=== PATIENT | male | born 1955 | race Caucasian/White ===

== ENCOUNTER → 2018-10-13 14:08 | Outpatient (CLI) | payer MEDICAID | END | disposition home or self-care (01) | LOC: D.RT 14:00 | PROVIDERS: ATTEND Internal Medicine Pulmonary Disease | DX: J44.9 Chronic obstructive pulmonary disease, unspecified (principal) ==

== ENCOUNTER → 2020-01-16 09:49 | Outpatient (CLI) | payer MEDICAID | END | disposition home or self-care (01) | LOC: D.RAD 09:49 | PROVIDERS: ATTEND Internal Medicine Pulmonary Disease | DX: J44.9 Chronic obstructive pulmonary disease, unspecified (principal) ==

== ENCOUNTER 2020-01-21 11:22 | Inpatient (IN) | payer OTHER ==
[~2020-01-21] VITALS: Ht 175.3 cm; Wt 76.4 kg
[2020-01-21] MEDS ORDERED: LISINOPRIL2.5 MG (11:27)
[2020-01-21] MEDS ORDERED: LISINOPRIL2.5 MG PO (11:27)
[2020-01-21] MEDS ORDERED: BAYER CHEWABLE81 MG PO (11:27)
[2020-01-21] MEDS ORDERED: BETAPACE 80 MG80 MG PO ×2 (11:27→16:22)
[2020-01-21] MEDS ORDERED: PREDNISONE1 MG PO (11:28)
[2020-01-21] MEDS ORDERED: PROAIR HFA8.5 G1 INH (11:28)
[2020-01-21 12:12] VITALS: BP 142/93
--- NOTE | 2020-01-21 12:12 | NUR ---
PT PLACED ON BI-PAP. WARM BLANKET FOR COMFORT. WILL CONT. TO MONITOR.
[2020-01-21 12:35] LABS: HEMATOCRIT 53.5 % (42.0-54.0); HEMOGLOBIN 17.5 g/dL (13.5-17.5); LYMPHOCYTES 11.3 % (15-50); MCH 30.4 pg (26.0-34.0); MCHC 32.7 g/dL (31.0-37.0); MEAN PLATELET VOLUME 10.6 fL (7.4-10.4); NEUTROPHILS 83.9 % (40-80); PLATELET COUNT 201 10x3/uL (130-400); RBC 5.75 10x6/uL (4.20-6.10); WBC 14.3 10x3/uL (4.8-10.8)
[2020-01-21 12:37] LABS: APTT 22.8 SECONDS (22.8-39.4); CALC OSMOLALITY 280 mosm/kg (275-300); CALCIUM 8.9 mg/dL (8.5-10.1); CARBON DIOXIDE 28.2 mmol/L (21.0-32.0); CHLORIDE - SERUM 102 mmol/L (98-107); CREATININE - SERUM 1.1 mg/dL (0.6-1.3); GLUCOSE 110 mg/dL (74-106); INR 0.99 (0.85-1.17); POTASSIUM - SERUM 4.1 mmol/L (3.5-5.1); PROTIME 13.1 SECONDS (11.6-15.0); SODIUM 139 mmol/L (136-145); UREA NITROGEN 19 mg/dL (7-18); eGFR NON AFRICAN AMERICAN 72 mL/min (90-120)
[2020-01-21 12:52] LABS: ALBUMIN 3.3 g/dL (3.4-5.0); ALKALINE PHOSPHATASE 61 U/L (30-120); ALT (SGPT) 23 U/L (10-68); BILIRUBIN - TOTAL 0.55 mg/dL (0.2-1.3); CKMB 0.8 U/L (0.0-3.6); CREATINE KINASE 61 UL (21-232); MAGNESIUM - SERUM 1.8 mg/dL (1.8-2.4); PRO BNP 161 pg/mL (0-125); PROTEIN - SERUM 7.2 g/dL (6.4-8.2); TROPONIN-I < 0.017 ng/mL (0.000-0.060)
--- NOTE | 2020-01-21 14:50 | NUR ---
RECEIVED PT TO ROOM 2126, VIA STRETCHER. PT WAS ABLE TO TRANSFER FROM STRETCHER TO BED. PT VERY SOB AND ANXIOUS. PLACED PT ON BIPAP AND WILL GIVE PT SOME BENADRYL TO HELP HIM RELAX AND LEAVE BIPAP ON. ORIENTED PT TO ROOM AND CALL LIGHT. WILL ASSESS PT AND START PLAN OF CARE.
[2020-01-21 15:40] VITALS: BP 148/88; BMI 24.2
[2020-01-21 15:48] VITALS: BP 148/88
[2020-01-21] MEDS ORDERED: LISINOPRIL10 MG PO (16:22)
[2020-01-21] MEDS ORDERED: PREDNISONE10 MG PO (16:24)
[2020-01-21] MEDS ORDERED: PHENERGAN/CODEINE (16:27)
--- NOTE | 2020-01-21 18:03 | NUR ---
BIPAP PLACED BACK ON PT.
--- NOTE | 2020-01-21 18:23 | NUR ---
NOTIFIED NICOLE ANG APN OF ELEVATED LATIC ACID OF 3.6. NO NEW ORDERES.
[2020-01-21 20:00] VITALS: BP 139/75
[2020-01-21 23:48] LABS: BILIRUBIN NEGATIVE (NEGATIVE); GLUCOSE 250 mg/dL (NEGATIVE); KETONE NEGATIVE (NEGATIVE); NITRITE NEGATIVE (NEGATIVE); UROBILINOGEN NORMAL (NORMAL)
[2020-01-21 23:49] LABS: BACTERIA FEW /hpf (NEGATIVE); EPITHELIAL CELLS 0-5 /hpf (0-5); RED CELLS - URINE 0-5 /hpf (0-5); WHITE CELLS - URINE NSEEN /hpf (NEGATIVE)
[2020-01-22] VITALS: BP 127/76
--- NOTE | 2020-01-22 00:08 | NUR ---
SPUTUM AND URINE SPECIMENS COLLECTED AND TAKEN TO LAB.
[2020-01-22 04:00] VITALS: BP 116/70
[2020-01-22 06:55] LABS: HEMATOCRIT 48.4 % (42.0-54.0); HEMOGLOBIN 16.2 g/dL (13.5-17.5); MCH 30.9 pg (26.0-34.0); MCHC 33.5 g/dL (31.0-37.0); MCV 92.4 fL (80.0-100.0); MEAN PLATELET VOLUME 11.3 fL (7.4-10.4); PLATELET COUNT 203 10x3/uL (130-400); RBC 5.24 10x6/uL (4.20-6.10); RDW 13.2 % (11.5-14.5); WBC 28.3 10x3/uL (4.8-10.8)
[2020-01-22 07:14] LABS: ANION GAP 10.8 mmol/L (8-16); BILIRUBIN - TOTAL 0.47 mg/dL (0.2-1.3); CALCIUM 8.9 mg/dL (8.5-10.1); CARBON DIOXIDE 27.6 mmol/L (21.0-32.0); CREATININE - SERUM 1.2 mg/dL (0.6-1.3); PHOSPHOROUS 4.3 mg/dL (2.5-4.9); POTASSIUM - SERUM 4.4 mmol/L (3.5-5.1); PROTEIN - SERUM 7.2 g/dL (6.4-8.2)
[2020-01-22 07:16] LABS: MAGNESIUM - SERUM 2.3 mg/dL (1.8-2.4)
[2020-01-22 09:13] VITALS: BP 139/84
--- NOTE | 2020-01-22 09:35 | NUR ---
AM MEDS GIVEN AT THIS TIME. PT IN BED, EATING BREAFAST. PT A/O X4, RESP EVEN AND NONLABORED ON 3L. LT FA IV SL AND RT HAND SL. PT DENIES ANY NEEDS AT THIS TIME. CALL LIGHT IN REACH, NAD NOTED, WILL CONTINUE TO MONITOR.
[2020-01-22 12:58] LABS: LYMPHOCYTES 14 % (15-50); MONOCYTES 9 % (2-11); NEUTROPHILS 67 % (40-80); PLATELET ESTIMATE NORMAL
[2020-01-22 13:12] VITALS: BP 144/82
[2020-01-22 13:39] VITALS: Ht 175.3 cm; Wt 76.4 kg
[2020-01-22 16:54] VITALS: BP 125/72
[2020-01-22 20:00] VITALS: BP 137/77
[2020-01-23] VITALS: BP 153/99
--- NOTE | 2020-01-23 03:05 | NUR ---
I have reviewed this patient and I concur with the Shift Assessment completed by the Licensed Practical Nurse today this shift.
[2020-01-23 04:00] VITALS: BP 130/79
[2020-01-23 07:12] LABS: BASOPHILS 0.1 % (0-2); EOSINOPHILS 1.7 % (0-7); HEMATOCRIT 43.3 % (42.0-54.0); HEMOGLOBIN 14.4 g/dL (13.5-17.5); IMMATURE GRANULOCYTES 1.6 % (0-5); LYMPHOCYTES 9.2 % (15-50); MCH 30.5 pg (26.0-34.0); MCHC 33.3 g/dL (31.0-37.0); MCV 91.7 fL (80.0-100.0); MEAN PLATELET VOLUME 11.3 fL (7.4-10.4); MONOCYTES 6.2 % (2-11); NEUTROPHILS 81.2 % (40-80); PLATELET COUNT 225 10x3/uL (130-400); RBC 4.72 10x6/uL (4.20-6.10)
[2020-01-23 07:18] LABS: WBC 19.2 10x3/uL (4.8-10.8)
--- NOTE | 2020-01-23 07:20 | NUR ---
RECIEVE REPORT. ALERT AND ORIENTED X4. SITTING UP IN BED WATCHING TV. DENIES ANY NEEDS. CONTINUE PLAN OF CARE AND SAFETY PRECAUTIONS.
[2020-01-23 07:48] LABS: ALBUMIN 2.6 g/dL (3.4-5.0); ALKALINE PHOSPHATASE 58 U/L (30-120); ALT (SGPT) 18 U/L (10-68); BILIRUBIN - TOTAL 0.29 mg/dL (0.2-1.3); CALC OSMOLALITY 277 mosm/kg (275-300); CALCIUM 8.9 mg/dL (8.5-10.1); CARBON DIOXIDE 24.7 mmol/L (21.0-32.0); CHLORIDE - SERUM 102 mmol/L (98-107); GLUCOSE 152 mg/dL (74-106); MAGNESIUM - SERUM 2.1 mg/dL (1.8-2.4); PHOSPHOROUS 3.7 mg/dL (2.5-4.9); PROTEIN - SERUM 6.7 g/dL (6.4-8.2); SODIUM 136 mmol/L (136-145); UREA NITROGEN 22 mg/dL (7-18); eGFR NON AFRICAN AMERICAN 80 mL/min (90-120)
[2020-01-23 08:39] VITALS: BP 145/71
[2020-01-23 12:00] VITALS: BP 134/74
[2020-01-23 16:38] VITALS: BP 151/79
[2020-01-23 20:00] VITALS: BP 139/77
[2020-01-24] VITALS: BP 142/81
--- NOTE | 2020-01-24 01:09 | NUR ---
I have reviewed this patient and I concur with the Shift Assessment completed by the Licensed Practical Nurse today this shift.
--- NOTE | 2020-01-24 02:14 | NUR ---
RESTING WITH EYES CLOSED, RESPERATIONS EVEN, NO S/S DISTRESS NOTED.
[2020-01-24 04:00] VITALS: BP 142/86
[2020-01-24 07:10] LABS: BASOPHILS 0.1 % (0-2); EOSINOPHILS 0 % (0-7); HEMATOCRIT 43.8 % (42.0-54.0); HEMOGLOBIN 14.8 g/dL (13.5-17.5); IMMATURE GRANULOCYTES 0.9 % (0-5); MCHC 33.8 g/dL (31.0-37.0); MCV 91.6 fL (80.0-100.0); MEAN PLATELET VOLUME 10.9 fL (7.4-10.4); MONOCYTES 7.6 % (2-11); NEUTROPHILS 81.4 % (40-80); PLATELET COUNT 221 10x3/uL (130-400); RBC 4.78 10x6/uL (4.20-6.10); RDW 12.9 % (11.5-14.5); WBC 16.2 10x3/uL (4.8-10.8)
[2020-01-24 07:13] LABS: ALBUMIN 2.6 g/dL (3.4-5.0); ANION GAP 10.4 mmol/L (8-16); BILIRUBIN - TOTAL 0.39 mg/dL (0.2-1.3); CALCIUM 8.4 mg/dL (8.5-10.1); CARBON DIOXIDE 25.6 mmol/L (21.0-32.0); CREATININE - SERUM 1.1 mg/dL (0.6-1.3); PHOSPHOROUS 3.7 mg/dL (2.5-4.9); PROTEIN - SERUM 6.6 g/dL (6.4-8.2)
[2020-01-24 10:28] VITALS: BP 137/76
[2020-01-24 11:57] VITALS: BP 149/87
[2020-01-24 16:11] VITALS: BP 156/81
--- NOTE | 2020-01-24 17:53 | NUR ---
ALERT AND ORIENTED X4. UP AMBULATING IN RENNER WITHOUT OXYGEN. AMBULATES 1000FT O2 SAT 96% RA. NO SIGNS OF DISTRESS. DENIES SOB. DENIES ANY NEEDS. CONTINUE PLAN OF CARE AND SAFEY PRECAUTIONS. RECOVER TIME 1 MINUTE O2 SAT 98%.
[2020-01-24 20:00] VITALS: BP 16/94
[2020-01-25] VITALS: BP 156/85
--- NOTE | 2020-01-25 03:42 | NUR ---
I have reviewed this patient and I concur with the Shift Assessment completed by the Licensed Practical Nurse today this shift.
--- NOTE | 2020-01-25 03:43 | NUR ---
I have reviewed this patient and I concur with the Shift Assessment completed by the Licensed Practical Nurse today this shift.
[2020-01-25 04:00] VITALS: BP 177/88
[2020-01-25 07:14] LABS: IMMUNOGLOBULIN A 105 mg/dL (61-437); IMMUNOGLOBULIN G 1222 mg/dL (603-1613)
[2020-01-25 07:26] LABS: ALBUMIN 2.7 g/dL (3.4-5.0); ANION GAP 11.4 mmol/L (8-16); BILIRUBIN - TOTAL 0.39 mg/dL (0.2-1.3); CALCIUM 8.6 mg/dL (8.5-10.1); CARBON DIOXIDE 25.7 mmol/L (21.0-32.0); CREATININE - SERUM 1.1 mg/dL (0.6-1.3); MAGNESIUM - SERUM 2.2 mg/dL (1.8-2.4); PHOSPHOROUS 4.1 mg/dL (2.5-4.9); POTASSIUM - SERUM 4.1 mmol/L (3.5-5.1); PROTEIN - SERUM 6.7 g/dL (6.4-8.2)
[2020-01-25 07:28] LABS: BASOPHILS 0.1 % (0-2); EOSINOPHILS 1.6 % (0-7); HEMATOCRIT 45.1 % (42.0-54.0); HEMOGLOBIN 15.5 g/dL (13.5-17.5); IMMATURE GRANULOCYTES 2.7 % (0-5); LYMPHOCYTES 10.7 % (15-50); MCHC 34.4 g/dL (31.0-37.0); MCV 90.2 fL (80.0-100.0); MEAN PLATELET VOLUME 10.6 fL (7.4-10.4); MONOCYTES 7.8 % (2-11); NEUTROPHILS 77.1 % (40-80); PLATELET COUNT 247 10x3/uL (130-400); RDW 12.7 % (11.5-14.5); WBC 18.6 10x3/uL (4.8-10.8)
[2020-01-25 09:12] VITALS: BP 141/96
--- NOTE | 2020-01-25 14:14 | MORECARE ---
CASE MANAGEMENT DISCHARGE SUMMARY PATIENT: MARÍA ELENA CASTELLANOS UNIT: [id number] ADM DATE: 01/21/20 AGE: 64 : 57 SEX: M ROOM/BED: D.2127 AUTHOR: SHYAM HANLEY PHYSICIAN: REFERRING PHYSICIAN: NICKO KHAN MD DATE OF SERVICE: 01/25/20 Discharge Plan Patient Name: MARÍA ELENA CASTELLANOS [facility] [facility] 1955 Planned Disposition: Home or Self Care Anticipated Discharge Date: Discharge Date: Expected LOS: Initial Reviewer: [email or web address] Initial Review Date: 01/21/2020 Generated: 01/25/20 3:13 pm DCPIA - Discharge Planning Initial Assessment Updated by [email or web address]: Grace Perera on 01/25/20 2:12 pm * Is the patient Alert and Oriented? Yes * How many steps to enter\exit or inside your home? 01/30 * PCP Fredi Streeter * Pharmacy [facility] * Preadmission Environment Home Alone * ADLs Independent * Equipment None * List name and contact numbers for known caregivers / representatives who currently or will assist patient after discharge: Marily Ledbetter [phone] * Verbal permission to speak to the caregivers and representatives has been obtained from the patient. Yes * Community resources currently utilized None * Additional services required to return to the preadmission environment? No * Can the patient safely return to the preadmission environment? Yes * Has this patient been hospitalized within the prior 30 days at any hospital? No Patient Name: MARÍA ELENA CASTELLANOS Page [id number] at 1414 All edits/amendments must be made on the electronic document DICTATION DATE: 01/25/20 1414 CIGARETTE MACHINE OPERATOR: LEONARDA 01/25/20 1414 RPT#: [id number] DC DATE: STATUS: ADM IN [facility] [address] [place] [address] END OF REPORT
--- NOTE | 2020-01-25 14:26 | MORECARE ---
CASE MANAGEMENT DISCHARGE SUMMARY PATIENT: MARÍA ELENA CASTELLANOS UNIT: [id number] ADM DATE: 01/21/20 AGE: 64 : 57 SEX: M ROOM/BED: D.8739 AUTHOR: TALON,DOC PHYSICIAN: REFERRING PHYSICIAN: NICKO KHAN MD DATE OF SERVICE: 01/25/20 Discharge Plan Patient Name: MARÍA ELENA CASTELLANOS Facility: [facility]:[place] : 1955 Planned Disposition: Home or Self Care Anticipated Discharge Date: Discharge Date: Expected LOS: Initial Reviewer: [email or web address] Initial Review Date: 01/21/2020 Generated: 01/25/20 3:26 pm Comments DCP- Discharge Planning Updated by [email or web address]: Grace Perera on 01/25/20 1:[address] Patient Name: MARÍA ELENA CASTELLANOS Admission Status: ER Accout number: [id number] Admission Date: 01-21-2020 : 1955 Admission Diagnosis:LOBAR PNEUMONIA, UNSPECIFIED ORGANISM Attending: WYATT Current LOS: 4 Anticipated DC Date: Planned Disposition: Home or Self Care Primary Insurance: [employer] Discharge Planning Comments: CM met with patient to complete initial dc planning assessment. CM educated patient on the CM role and verbal consent given by patient to complete assessment. CM verified patient's address, phone number, and emergency contact phone numbers. Patient lives at home with his and assist in caring for her. At discharge patient plans to return home and feels this is a safe discharge. CM discussed availability of home health, rehab services, and medical equipment. Patient denied any known discharge needs at this time. A walk test was performed to assess the need for home and portable oxygen. The patient oxygen saturation was 96% while walking. The patient states he is able to drive himself home. DC IMM delivered, explained, signed by the patient, and placed in chart. Signed form also left with the patient. CM will continue to follow and will assist as needed with dc plans/needs. Setter Induction Heating Equipment: Grace Perera DCPIA - Discharge Planning Initial Assessment Updated by [email or web address]: Grace Perera on 01/25/20 2:12 pm * Is the patient Alert and Oriented? Yes * How many steps to enter\exit or inside your home? 01/30 * PCP Fredi Streeter * Pharmacy [facility] * Preadmission Environment Home Alone * ADLs Independent * Equipment None * List name and contact numbers for known caregivers / representatives who currently or will assist patient after discharge: Marily Ledbetter [phone] * Verbal permission to speak to the caregivers and representatives has been obtained from the patient. Yes * Community resources currently utilized None * Additional services required to return to the preadmission environment? No * Can the patient safely return to the preadmission environment? Yes * Has this patient been hospitalized within the prior 30 days at any hospital? No Coverage Notice Reviewer: [email or web address] Radha Perera Notice Issued Date-Time: 01/25/2020 13:00 Notice Type: IM Discharge Notice Notice Delivered To: Patient Relationship to Patient: Engineering Intern Name: Delivery Method: HAND - Hand Delivered Jeanine Days: Prior Verbal Notification: Recipient Understood Notice: Yes Recipient Signature: Yes Med Rec Note Co-signed by Attending: Coverage Notice Comment: DC IMM delivered, explained, signed by the patient, and placed in chart. Signed form also left with the patient. Last DP export: 01/25/20 1:14 p Patient Name: MARÍA ELENA CASTELLANOS Page [phone] at 1426 All edits/amendments must be made on the electronic document DICTATION DATE: 01/25/201425 BOBBIN DRIER: LEONARDA 01/25/20 142 RPT#: [id number] DC DATE: STATUS: ADM IN [facility] [address] [place] [address] END OF REPORT
[2020-01-25 15:23] VITALS: BP 162/82
[2020-01-25] MEDS ORDERED: FEXOFENADINE HC60 MG PO (16:58)
[2020-01-25] MEDS ORDERED: MUCINEX600 MG PO (16:59)
[2020-01-25] MEDS ORDERED: TESSALON PERLE100 MG PO (17:00)
[2020-01-25] MEDS ORDERED: DALIRESP250 MCG PO (17:00)
[2020-01-25] MEDS ORDERED: SINGULAIR10 MG PO (17:00)
[2020-01-25] MEDS ORDERED: FLUTICASONE PRO16 GM NASAL (17:00)
[2020-01-25] MEDS ORDERED: PULMICORT0.5 MG/21 UPD (17:02)
[2020-01-25] MEDS ORDERED: IPRAT-ALBUT 0.5-3 ML UPD (17:03)
[2020-01-25] MEDS ORDERED: OMNICEF300 MG PO (17:03)
[2020-01-25] MEDS ORDERED: BROVANA15 MCG/2 M INH (17:03)
[2020-01-25] MEDS ORDERED: CLINDAMYCIN HC300 MG PO (17:05)
[2020-01-25] MEDS ORDERED: PREDNISONE10 MG PO (17:06)
[2020-01-25 17:54] VITALS: BP 159/85
== END 2020-01-25 18:09 | disposition home or self-care (01) | DRG 193 ==
LOC: D.ER 11:22 → D.M2 13:42
PROVIDERS: Emergency Medicine; Internal Medicine Pulmonary Disease; ADMIT Family Medicine; ATTEND Family Medicine
DX: J18.1 Lobar pneumonia, unspecified organism (principal); J96.21 Acute and chronic respiratory failure with hypoxia; E87.2 Acidosis; J44.1 Chronic obstructive pulmonary disease with (acute) exacerbation; J30.9 Allergic rhinitis, unspecified; K21.9 Gastro-esophageal reflux disease without esophagitis; I10 Essential (primary) hypertension; D72.829 Elevated white blood cell count, unspecified; I48.91 Unspecified atrial fibrillation; Z72.0 Tobacco use

== ENCOUNTER → 2020-03-04 13:04 | Outpatient (CLI) | payer OTHER ==
[2020-01-22 13:39] VITALS: BMI 25.4
[~2020-03-04 13:04] MED LIST: BAYER CHEWABLE81 MG PO; BETAPACE 80 MG80 MG PO; BROVANA15 MCG/2 M INH; CLINDAMYCIN HC300 MG PO; DALIRESP250 MCG PO; FEXOFENADINE HC60 MG PO; FLUTICASONE PRO16 GM NASAL; IPRAT-ALBUT 0.5-3 ML UPD; LISINOPRIL10 MG PO; LISINOPRIL2.5 MG; LISINOPRIL2.5 MG PO; MUCINEX600 MG PO; OMNICEF300 MG PO; PHENERGAN/CODEINE; PREDNISONE1 MG PO; PREDNISONE10 MG PO; PROAIR HFA8.5 G1 INH; PULMICORT0.5 MG/21 UPD; SINGULAIR10 MG PO; TESSALON PERLE100 MG PO
== END | disposition home or self-care (01) ==
LOC: D.RT 13:04
PROVIDERS: ATTEND Internal Medicine Pulmonary Disease
DX: J44.9 Chronic obstructive pulmonary disease, unspecified (principal)

== ENCOUNTER 2020-03-13 14:54 | Emergency (ER) | payer OTHER ==
[~2020-03-13] VITALS: Ht 175.3 cm; Wt 75.5 kg
[2020-03-13 15:05] VITALS: Ht 175.3 cm; Wt 75.5 kg
[2020-03-13] MEDS ORDERED: NAPROSYN500 MG PO (16:42)
[2020-03-13 16:45] VITALS: BP 118/73
== END 2020-03-13 16:51 | disposition home or self-care (01) ==
LOC: D.ER 14:54
DX: S29.012A Strain of muscle and tendon of back wall of thorax, initial encounter (principal); I10 Essential (primary) hypertension; J44.9 Chronic obstructive pulmonary disease, unspecified; V89.2XXA Person injured in unspecified motor-vehicle accident, traffic, initial encounter; Y93.9 Activity, unspecified; Y92.9 Unspecified place or not applicable; M54.2 Cervicalgia; M54.9 Dorsalgia, unspecified; M25.512 Pain in left shoulder

== ENCOUNTER → 2020-09-27 08:14 | Outpatient (CLI) | payer OTHER ==
[2020-03-13 15:05] VITALS: BMI 24.5
[~2020-09-27 08:14] MED LIST changes: +NAPROSYN500 MG PO
== END | disposition home or self-care (01) ==
LOC: D.RT 08:14
PROVIDERS: ATTEND Internal Medicine Pulmonary Disease
DX: J44.9 Chronic obstructive pulmonary disease, unspecified (principal)